=== PATIENT | male | born 1985 | race Caucasian/White ===

== ENCOUNTER 2020-07-07 13:59 | Emergency (ER) | payer BC ==
--- NOTE | 2020-07-07 14:20 | TELE ---
HPI Do you have fever,cough or shortness of breath?: No - General Reason For Visit: COVILD 19 TEST Time Seen by Provider: 07/07/20 14:11 History Source: Patient Exam Limitations: No Limitations - History of Present Illness 07/07/20 14:11 History of presenting illness: 34-year-old male with telehealth visit for [facility] COVID testing. Patient reports he has had diarrhea over the past 5 to 6 days which she reports is yellow. He states he had one episode of blood- streaked but attributed to increased rectal irritation from multiple episodes of diarrhea. Patient denied abdominal pain. Patient reports his and children are having similar symptoms and nobody has had fevers. Patient states his told him to call and get tested for COVID. CONSTITUTIONAL: Absent: fever, chills, diaphoresis, generalized weakness, malaise, loss of appetite HEENT: Absent: rhinorrhea, nasal congestion, throat pain, throat swelling, difficulty swallowing, mouth swelling, ear pain, eye pain, visual changes CARDIOVASCULAR: Absent: chest pain, loss of consciousness, palpitations, irregular heart rate, peripheral edema RESPIRATORY: Absent: cough, shortness of breath, dyspnea with exertion, orthopnea, wheezing, stridor, hemoptysis GASTROINTESTINAL: +diarrhea Absent: abdominal pain, abdominal distension, nausea, vomiting SKIN: Absent: rash, itching, pallor NEUROLOGIC: Absent: headache, focal weakness or paresthesias, dizziness, unsteady gait, seizure, mental status changes, bladder or bowel incontinence PSYCHIATRIC: Absent: anxiety, depression, suicidal or homicidal ideation, hallucinations. GENERAL: Well developed, well nourished. Awake and alert. No acute distress. HEENT: Normocephalic, atraumatic. PERRLA, EOMI. NECK: Supple. Full ROM. PULMONARY: No evidence of respiratory distress. EXTREMITIES: No cyanosis. SKIN: Warm and dry. Normal capillary refill. No rashes. No jaundice. NEUROLOGICAL: Alert, awake, appropriate. PSYCHIATRIC: Cooperative. Good eye contact. Appropriate mood and affect. - Medical Decision Making 07/07/20 14:16 A/P: 34-year-old male requesting COVID testing for diarrhea for 5 days Patient reports stools have become more formed over the past 24 hours still have a yellowish hue. Denies rectal bleeding after one episode which he attributed to rectal pain due to increased liquid bowel movements. COVID testing COVID antibody test Patient has been instructed to present to the emergency department for continued evaluation if diarrhea persists. Patient has verbalized understanding of when to return to emergency department for in person evaluation. Discharge Discharge Diagnosis at time of Disposition: Counseled about COVID-19 virus infection - Referrals - Patient Instructions Additional Discharge Instructions: You were tested for COVID today. Please isolate yourself until your test results come back. Guidance has been provided in your discharge papers You should receive a call within 24 to 48 hours from our department with your results. Thank you for using our telehealth service today! - Discharge Disposition: HOME Condition at time of Disposition: Stable
== END 2020-07-07 14:20 | disposition home or self-care (01) ==
LOC: JVIRT 13:59
DX: Z01.84 Encounter for antibody response examination (principal); Z11.59 Encounter for screening for other viral diseases
CPT/HCPCS: 36415; 86769; Q3014-GT; U0003

== ENCOUNTER 2020-07-07 14:59 | Emergency (ER) | payer BC ==
--- NOTE | 2020-07-07 15:09 | PDOC ---
History of Present Illness - General Chief Complaint: Pain, Acute Stated Complaint: diarrhea,fall Time Seen by Provider: 07/07/20 15:03 History Source: Patient Exam Limitations: No Limitations - History of Present Illness Initial Comments: 07/07/20 15:08 34 yo male no sig medical hx presents to the ED after a slip and fall. Pt states this morning while walking down the steps he slipped on a child toy, twisted his left ankle and landed on his right flank. Pt presented to the hospital for outpatient COVID testing however, after mentioning the fall to staff, he stated since he was already in the building and the wait was not long, he wanted to get checked out. Pt states he was able to ambulate on the ankle immediately after the fall without significant pain, denies point tenderness to the foot or ankle. Pt states he has pain to the area on his right flank that he landed on that feels like a bruise without radiation, abdominal pain/swelling, no changes in pain with deep breathing or noted bruising to the skin. Past History - Medical History Allergies/Adverse Reactions: Allergies Allergy/AdvReac Type Severity Reaction Status Date / Time No Allergy Information Allergy Unverified 07/07/20 14:32 Available Review of Systems - Review of Systems Constitutional: Yes: Symptoms Reported Respiratory: Yes: Symptoms reported Cardiac (ROS): Yes: Symptoms Reported ABD/GI: Yes: Symptoms Reported : Yes: Symptoms Reported Musculoskeletal: Yes: Symptoms Reported Integumentary: Yes: Symptoms Reported *Physical Exam - Physical Exam General Appearance: Yes: Nourished, Appropriately Dressed. No: Apparent Distress HEENT: positive: EOMI Neck: positive: Supple. negative: Tender midline Respiratory/Chest: positive: Lungs Clear, Normal Breath Sounds. negative: Chest Tender, Accessory Muscle Use, Rapid RR, Decreased Breath Sounds, Crackles, Rales, Rhonchi, Stridor, Wheezing Cardiovascular: positive: Regular Rhythm, Regular Rate, S1, S2. negative: Edema, JVD, Murmur Vascular Pulses: Dorsalis-Pedis (R): 4+, Doralis-Pedis (L): 4+ Gastrointestinal/Abdominal: positive: Flat, Soft. negative: Pulsatile Mass, Increased Bowel Sounds, Protuberent, Distended, Guarding, Rebound, Tenderness Musculoskeletal: positive: Other (no bruising or deformity to the right flank, no change in pain with deep breathing). negative: CVA Tenderness Extremity: positive: Normal Capillary Refill, Normal Inspection, Normal Range of Motion, Pelvis Stable, Other (no point tenderness to the ankle, no swelling. Pt ambulates without difficulty ). negative: Pedal Edema Integumentary: positive: Normal Color, Dry, Warm. negative: Swelling Neurologic: positive: agency service representative II-XII NML intact, Fully Oriented, Alert, Normal Mood/Affect, Normal Response, Motor Strength 5/5. negative: Confused Medical Decision Making - Medical Decision Making 07/07/20 15:20 34 yo male no sig medical hx presents to the ED after a slip and fall. Pt states this morning while walking down the steps he slipped on a child toy, twisted his left ankle and landed on his right flank. Pt presented to the hospital for outpatient COVID testing however, after mentioning the fall to staff, he stated since he was already in the building and the wait was not long, he wanted to get checked out. Pt states he was able to ambulate on the ankle immediately after the fall without significant pain, denies point tenderness to the foot or ankle. Pt states he has pain to the area on his right flank that he landed on that feels like a bruise without radiation, abdominal pain/swelling, no changes in pain with deep breathing or noted bruising to the skin. Denies changes in bowel or bladder habits, midline spine tenderness vitals stable see PE Pt safe for DC home with PCP f/u No imaging indicated due to ambulating and no point tenderness to ankle. No bruise, abdominal pain, pain on deep breathing to right flank Discharge - Discharge Information Problems reviewed: Yes Clinical Impression/Diagnosis: Fall Condition: Stable Disposition: HOME - Admission No - Follow up/Referral - Patient Discharge Instructions Patient Printed Discharge Instructions: How to Prevent Falls, DI for Ankle Pain Additional Instructions: Please see your Primary Doctor within the next 48 hours. Rest, Ice, compress and elevate your ankle and take over the counter pain medication as needed and described on the packaging. Return to the ER for new or concerning symptoms. THank you - Post Discharge Activity
[2020-07-07 15:20] VITALS: BP 161/91; PULSE 91; TEMP 98.8; BMI 38.0
--- NOTE | 2020-07-07 15:59 | PDOC ---
Documentation entered by Justin Ramires SCRIBE, acting as scribe for Malgorzata Sosa MD. Malgorzata Sosa MD: This documentation has been prepared by the casieibe, Justin Ramires SCRIBE, under my direction and personally reviewed by me in its entirety. I confirm that the documentation accurately reflects all work, treatment, procedures, and medical decision making performed by me. Attending Attestation - Resident Resident Name: Elvin Tran - ED Attending Attestation I have performed the following: I have examined & evaluated the patient, The case was reviewed & discussed with the resident, I agree w/resident's findings & plan, Exceptions are as noted - HPI HPI: 07/07/20 15:15 The patient is a 34 year old male with no significant past medical history who presents to the emergency department, originally coming for COVID-19 test, for evaluation of right side pain s/p a mechanical fall this morning. The patient reports he was walking down stairs and fell after he stepped on a toy, causing him to twist his ankle. He endorses right side, R hip, and L ankle pain. He reports initially presenting for COVID-19 test because he had diarrhea for 5 days (now resolved) and his family members who he lives with have diarrhea and fevers. The patient denies chest/abdominal pain, cough, and shortness of breath. Denies fever, chills, nausea, vomiting, and/or any symptoms. Denies any other sym ptoms. Allergies: Not Available PCP: None - Physicial Exam PE: 07/07/20 15:09 General: well appearing Chest: CTAB, good air entry, no wheezes rales or rhonchi, no chest wall/rib ttp, no stepoffs CVS: + s1 s2, RRR Back: no midline or paraspinal tenderness Extremities: ankle non-tender, no swelling or increased warmth or deformities, dorsiflexion/plantarflexion 5/5 b/l, ambulatory with stead gait - Medical Decision Making 07/07/20 15:11 34 yo M with R sided pain and L ankle pain s/p mechanical fall down 2 steps today, unremarkable physical exam, no SOB or pain with inspiration to suggest rib fx and lungs CTAB with good O2 sat so unlikely clinically significant PTX. No ankle ttp or restricted range of motion to suggest fx or dislocation, more likely sprain/contusion. Plan: -d/c with return precautions, recommend tylenol or motrin at hoem as needed forpain and PMD f/u as needed This clinical encounter is taking place during a federal and state health care emergency attributable to the novel [place] Virus pandemic. The C[employer] Fin[employer] Apprentice of the Department of Health and Human Services has declared, pursuant to the Public Health Service Act 319F-3 (42 U.S.C. 247d-6d), that a covered persons activities related to medical countermeasures against COVID-19 will be immune from liability under Federal and State law. Discharge - Discharge Information Problems reviewed: Yes Clinical Impression/Diagnosis: Fall Condition: Stable Disposition: HOME - Follow up/Referral - Patient Discharge Instructions Patient Printed Discharge Instructions: How to Prevent Falls, DI for Ankle Pain Additional Instructions: Please see your Primary Doctor within the next 48 hours. Rest, Ice, compress and elevate your ankle and take over the counter pain medication as needed and described on the packaging. Return to the ER for new or concerning symptoms. THank you - Post Discharge Activity
== END 2020-07-07 15:29 | disposition home or self-care (01) ==
LOC: FER 14:59
DX: S93.402A Sprain of unspecified ligament of left ankle, initial encounter (principal); R10.9 Unspecified abdominal pain
CPT/HCPCS: 99283-25

== ENCOUNTER 2020-08-10 09:51 | Emergency (ER) | payer BC ==
--- OUTSIDE RECORDS SUMMARY | 2020-08-10 09:54 | XMS ---
:1985 Author Organization [facility] Support Name Relationship Address Phone [employer] Unavailable [address] [place] [address] LAZARUS [place]OZCO [address] [place] [address] [employer] Unavailable [address] [place] [address] GALLO OROZCO [address] [place] [address] LAZARUS OROZCO Spouse [address] [place] [address] GALLO OROZCO Spouse [address] [place] [address] Re-disclosure Warning The records that you are about to access may contain information from federally- assisted alcohol or drug abuse programs. If such information is present, then the following federally mandated warning applies: This information has been disclosed to you from records protected by federal confidentiality rules (42 CFR part 2). The federal rules prohibit you from making any further disclosure of this information unless further disclosure is expressly permitted by the written consent of the person to whom it pertains or as otherwise permitted by 42 CFR part 2. A general authorization for the release of medical or other information is NOT sufficient for this purpose. The Federal rules restrict any use of the information to criminally investigate or prosecute any alcohol or drug abuse patient.The records that you are about to access may contain highly sensitive health information, the redisclosure of which is protected by Article 27-F of the [facility] Public Health law. If you continue you may haveaccess to information: Regarding HIV / AIDS; Provided by facilities licensed or operated by the [facility] Office of Mental Health; or Provided by the [facility] Office for People With Developmental Disabilities. If such information is present, then the following [facility] mandated warning applies: This information has been disclosed to you from confidential records which are protected by state law. State law prohibits you from making any further disclosure of this information without the specific written consent of the person to whom it pertains, or as otherwise permitted by law. Any unauthorized further disclosure in violation of state law may result in a fine or penitentiary sentence or both. A general authorization for the release of medical or other information is NOT sufficient authorization for further disclosure. Insurance Providers Payer name Policy type / Policy ID Covered Covered democrat's Policy Plan Coverage type democrat ID relationship to Leroy Information leroy [employer] PPO [id number] SP [id number] Results ID Date Data Source [id number] 07/07/2020 02:45:00 PM EDT [facility] Name Value Range Interpretation Description Data Sup porting Code Source(s) Document(s ) SARS [facility] coronavirus 2 RNA This lab was ordered by [facility] and reported by [facility]. Procedure
--- NOTE | 2020-08-10 11:00 | TELE ---
HPI Do you have fever,cough or shortness of breath?: No - General Reason For Visit: COVID 19 TEST History Source: Patient Exam Limitations: No Limitations - History of Present Illness 08/10/20 10:44 Patient is a 35-year-old male with a history of asthma who presents for a virtual urgent care visit secondary to flulike symptoms. He has had a cough, nasal congestion, sputum production and a scratchy throat for the last 2 days. He denies any fevers or chills. He had a slight headache yesterday which resolved with Tylenol. He does admit to traveling to [place] 1 week ago. He denies any travel outside of the within the last 30 days. He denies any known COVID contacts. He denies any allergies to medications. He is requesting a COVID swab to ensure that his illness is not secondary to COVID. He is also requesting an albuterol inhaler secondary to being an asthmatic. Of note: This virtual urgent care visit was done via audio only as the patient was having difficulty connecting to the video visit Past History - Medical History Allergies/Adverse Reactions: Allergies Allergy/AdvReac Type Severity Reaction Status Date / Time No Allergy Information Allergy Unverified 07/07/20 14:32 Available Home Medications: Ambulatory Orders Albuterol Sulfate [Albuterol Sulfate Hfa] 2 puff IH Q4H PRN #1 [email or web address] 08/10/20 Asthma: Yes COPD: No Thyroid Disease: Yes (SARCADOSIS) - Immunization History Immunization Up to Date: Yes - Psycho-Social/Smoking History Smoking History: Never smoked Have you smoked in the past 12 months: No Review of Systems - Review of Systems Comments:: 08/10/20 11:00 - Review of Systems Able to Perform ROS?: Yes Constitutional: No: Fever, Chills, Loss of Appetite, Night Sweats, Weakness HEENTM: Positive: Sore throat, nasal congestion Respiratory: No: Shortness of Breath, Wheezing; positive: Cough and sputum production Cardiac (ROS): No: Chest Pain, Chest Tightness, Palpitations, Irregular Heart Beat, Edema ABD/GI: No: Nausea, Vomiting, Abdominal Pain, Diarrhea : No Dysuria, No Hematuria, No Frequency, No Urgency Musculoskeletal: No: Muscle Pain, Back Pain, Joint Pain, Muscle Weakness, Neck Pain Integumentary: No: Lesions, Rash Neurological: No: Headache, Numbness, Tingling, Weakness, Speech Difficulties *Physical Exam - Physical Exam 08/10/20 11:01 - Physical Exam HEENT: Normal Voice, Hearing Grossly Normal Respiratory/Chest: Speaking in full and complete sentences Neurologic: Fully Oriented, Alert, Normal Mood/Affect, Normal Response - Medical Decision Making 08/10/20 11:03 Assessment: Patient is a 35-year-old male with flulike illness who would like a COVID swab. Plan: -COVID swab ordered -Patient to proceed to the [facility] for his testing -COVID counseling given, isolation precautions reviewed -Albuterol sent to the patient's pharmacy -Patient understands and agrees with this treatment and plan Discharge Diagnosis at time of Disposition: Counseled about COVID-19 virus infection, Influenza-like illness - Prescriptions eRx: Albuterol Sulfate [Albuterol Sulfate Hfa] 2 puff IH Q4H PRN #1 [email or web address] PRN Reason: Wheezing - Referrals - Patient Instructions Discharge Instructions: [facility] Instructions, [facility] COVID-19 Isolation Protocol Additional Discharge Instructions: You were seen via a telehealth visit and tested for COVID today. You should follow isolation precautions as per [facility] guidelines. Thank you for participating in our telehealth medicine program. If you have any worsening symptoms such as high fever, shaking chills, profuse vomiting or any other worsening symptoms you should go to your local emergency department immediately or follow up with your primary care doctor immediately. If you become symptomatic: Take Tylenol 650 mg every 6 hours as needed for fever or pain. You may take Robitussin or other [id number] cough syrup. Follow the dosing instructions on the bottle. Warm tea, honey, and salt water gargles may help your symptoms. Please take precautions and self quarantine for 2 weeks and follow-up with your primary care doctor and the Department of Health. Return to the nearest emergency department for shortness of breath, difficulty breathing, chest pain, or if you have any changes in your symptoms. - Discharge Disposition: HOME Condition at time of Disposition: Stable
== END 2020-08-10 11:06 | disposition home or self-care (01) ==
LOC: JVIRT 09:51
DX: Z03.818 Encounter for observation for suspected exposure to other biological agents ruled out (principal)
CPT/HCPCS: 99441-95; C9803; U0003